=== PATIENT | female | born 1970 | race Caucasian/White ===

== ENCOUNTER 2022-12-03 07:28 | Day surgery (SDC) | payer MEDICAID ==
[2022-12-02 10:55] LABS: HCG,QUAL RESULT NEGATIVE (NEGATIVE)
[~2022-12-03] VITALS: Ht 157.5 cm; Wt 83.9 kg
[2022-12-03] MEDS ORDERED: DIPHENHYDRAMINE INJ 50 MG/ML VIAL ONE (08:38)
[2022-12-03] MEDS ORDERED: fentaNYL CITRATE/PF 100 MCG/2 ML AMP ONE (08:39)
[2022-12-03] MEDS ORDERED: MIDAZOLAM HCL 5 MG/5 ML VIAL ONE (08:50)
[2022-12-03] MEDS ORDERED: LIDOCAINE 2%, 20 ML MDV ONE (09:00)
[2022-12-03] MEDS ORDERED: methylPREDNISolone ACETATE 40 MG/ML ONE (09:00)
[2022-12-03] MEDS ORDERED: ISOVUE-300 (IOPAMIDOL) 100 ML INFUS..BTL IV ONE (09:00)
[2022-12-03] MEDS ORDERED: NORMAL SALINE 10 ML VIAL ONE (09:00)
[2022-12-03] MEDS: MIDAZOLAM HCL 5 MG/5 ML VIAL ONE ×2 (10:02→10:05)
[2022-12-03 17:19] VITALS: BP_SYST 114
== END 2022-12-03 11:10 | disposition home or self-care (01) ==
LOC: SDS 07:28 → SMU 07:29 → SDS 11:10
PROVIDERS: ATTEND Internal Medicine
DX: M51.16 Intervertebral disc disorders with radiculopathy, lumbar region (principal); I10 Essential (primary) hypertension; E11.9 Type 2 diabetes mellitus without complications; Z20.822 Contact with and (suspected) exposure to COVID-19; Z79.899 Other long term (current) drug therapy
CPT/HCPCS: 84703; 36415; 62323; 82962; U0003; J1200; J2001; J1030; J2250; J3010; Q9967; 76000

== ENCOUNTER 2023-01-28 07:42 | Day surgery (SDC) | payer MEDICAID ==
[~2023-01-28] VITALS: Ht 157.5 cm; Wt 86.2 kg
[2023-01-28 08:22] LABS: HCG,QUAL RESULT NEGATIVE (NEGATIVE)
[2023-01-28] MEDS ORDERED: DIPHENHYDRAMINE INJ 50 MG/ML VIAL ONE (08:52)
[2023-01-28] MEDS ORDERED: NORMAL SALINE 10 ML VIAL ONE (09:00)
[2023-01-28] MEDS ORDERED: LIDOCAINE 2%, 20 ML MDV ONE (09:00)
[2023-01-28] MEDS ORDERED: methylPREDNISolone ACETATE 40 MG/ML ONE (09:00)
[2023-01-28] MEDS ORDERED: IOPAMIDOL 50 ML VIAL IV ONE (09:00)
[2023-01-28] MEDS: MIDAZOLAM HCL 5 MG/5 ML VIAL ONE ×2 (10:53→10:57)
[2023-01-28] MEDS: fentaNYL CITRATE/PF 100 MCG/2 ML AMP ONE ×2 (10:55→10:58)
[2023-01-28 17:15] VITALS: BP_SYST 95
== END 2023-01-28 12:05 | disposition home or self-care (01) ==
LOC: SDS 07:42 → SMU 07:42 → SDS 12:05
PROVIDERS: ATTEND Internal Medicine
DX: M51.16 Intervertebral disc disorders with radiculopathy, lumbar region (principal); I10 Essential (primary) hypertension; E11.9 Type 2 diabetes mellitus without complications; Z79.899 Other long term (current) drug therapy; Z20.822 Contact with and (suspected) exposure to COVID-19
CPT/HCPCS: 62323; 87426; 82962; 84703; 36415; J1200; J2001; J1030; J2250; J3010; Q9967; 76000

== ENCOUNTER 2023-07-29 07:54 | Day surgery (SDC) | payer MEDICAID ==
[~2023-07-29] VITALS: Ht 157.5 cm; Wt 83.9 kg
[2023-07-29 08:25] LABS: HCG,QUAL RESULT NEGATIVE (NEGATIVE)
[2023-07-29] MEDS ORDERED: fentaNYL CITRATE/PF 100 MCG/2 ML AMP ONE (08:33)
[2023-07-29] MEDS ORDERED: DIPHENHYDRAMINE INJ 50 MG/ML VIAL ONE (08:34)
[2023-07-29 09:10] VITALS: O2SAT 97
[2023-07-29] MEDS: MIDAZOLAM HCL 5 MG/5 ML VIAL ONE ×2 (10:12→10:16)
[2023-07-29 16:37] VITALS: BP_SYST 130; PULSE 72; RESP 16
== END 2023-07-29 11:33 | disposition home or self-care (01) ==
LOC: SDS 07:54 → SMU 08:07 → SDS 11:33
PROVIDERS: ATTEND Internal Medicine
DX: M51.16 Intervertebral disc disorders with radiculopathy, lumbar region (principal); M51.9 Unspecified thoracic, thoracolumbar and lumbosacral intervertebral disc disorder; I10 Essential (primary) hypertension; E11.9 Type 2 diabetes mellitus without complications; M79.10 Myalgia, unspecified site; Z79.899 Other long term (current) drug therapy
CPT/HCPCS: 62323; 82962; 84703; J1200; J2250; J3010; 76000